=== PATIENT | female | born 2000 | race Caucasian/White ===

== ENCOUNTER → 2021-10-02 | Outpatient (REF) ==
[2021-10-02 12:27] LABS: RSV AMPLIFICATION NEGATIVE (NEGATIVE)
== END ==
LOC: M LABSMTC 10:35
PROVIDERS: ATTEND Family Medicine
DX: Z11.52 Encounter for screening for COVID-19 (principal); Z20.822 Contact with and (suspected) exposure to COVID-19

== ENCOUNTER → 2023-02-07 | Outpatient (CLI) | payer BC, OTHER ==
[2023-02-07 14:47] LABS: BASO % 0.4 % (0.0-1.0); EOS # 0.2 10^3/uL (0.0-0.5); EOS % 2.2 % (0.0-3.0); HEMATOCRIT 46.7 % (36.0-47.0); HEMOGLOBIN 15.3 g/dl (12.0-15.5); LYMPH # 2.8 10^3/uL (1.5-5.0); LYMPH % 33.1 % (24.0-44.0); MEAN CORPUSCULAR HEMOGLOBIN 28.2 pg (27.0-33.0); MEAN CORPUSCULAR HGB CONC 32.8 g/dl (32.0-36.5); MONO # 0.7 10^3/uL (0.0-0.8); MONO % 8.5 % (2.0-8.0); NEUTROPHILS # 4.6 10^3/uL (1.5-8.5); NEUTROPHILS % 55.6 % (36.0-66.0); PLATELET COUNT, AUTOMATED 365 10^3/uL (150-450); RED BLOOD COUNT 5.43 10^6/uL (4.00-5.40); WHITE BLOOD COUNT 8.3 10^3/uL (4.0-10.0)
[2023-02-07 14:57] LABS: HEMOGLOBIN A1c 5.1 % (4.0-6.0)
[2023-02-07 15:18] LABS: ALBUMIN 3.9 G/DL (3.2-5.2); ALKALINE PHOSPHATASE 75 U/L (46-116); ALT/SGPT 20 U/L (7.0-40); AST/SGOT 17 U/L (<34); BILIRUBIN,TOTAL 0.4 MG/DL (0.3-1.2); BLOOD UREA NITROGEN 10 MG/DL (9-23); CALCIUM LEVEL 9.7 MG/DL (8.5-10.1); CARBON DIOXIDE LEVEL 30 MMOL/L (20-31); CHLORIDE LEVEL 100 MMOL/L (98-107); CREATININE FOR GFR 0.73 MG/DL (0.55-1.30); FREE T4 0.97 NG/DL (0.89-1.76); GLOMERULAR FILTRATION RATE > 60.0 (>60); GLUCOSE, FASTING 84 MG/DL (60-100); POTASSIUM SERUM 4.1 MMOL/L (3.5-5.1); SODIUM LEVEL 137 MMOL/L (136-145); THYROID PEROXIDASE ANTIBODY 92 U/ML (<60.0); THYROID STIMULATING HORMONE 1.325 uIU/ML (0.55-4.78); TOTAL PROTEIN 7.9 G/DL (5.7-8.2)
== END ==
LOC: M LAB 13:56
PROVIDERS: ATTEND Nurse Practitioner Adult Health
DX: R53.83 Other fatigue (principal); E66.01 Morbid (severe) obesity due to excess calories

== ENCOUNTER → 2023-11-01 | Outpatient (CLI) | payer BC, OTHER | LOC: M LAB 15:46 | PROVIDERS: ATTEND Nurse Practitioner Adult Health | DX: N91.2 Amenorrhea, unspecified (principal) ==

== ENCOUNTER → 2023-11-07 | Outpatient (CLI) | payer BC, OTHER | LOC: M LAB 16:31 | PROVIDERS: ATTEND Nurse Practitioner Adult Health | DX: N91.2 Amenorrhea, unspecified (principal) ==

== ENCOUNTER → 2023-11-14 | Outpatient (CLI) | payer BC, OTHER | LOC: M LAB 16:34 | PROVIDERS: ATTEND Nurse Practitioner Adult Health | DX: Z33.1 Pregnant state, incidental (principal) ==

== ENCOUNTER 2023-11-16 20:05 | Emergency (ER) | payer BC, OTHER ==
[~2023-11-16] VITALS: Ht 167.6 cm; Wt 149.3 kg
[2023-11-16 22:51] LABS: BASO % 0.4 % (0.0-1.0); EOS # 0.2 10^3/uL (0.0-0.5); EOS % 1.5 % (0.0-3.0); HEMATOCRIT 40.8 % (36.0-47.0); HEMOGLOBIN 13.4 g/dl (12.0-15.5); LYMPH # 2.8 10^3/uL (1.5-5.0); LYMPH % 24.5 % (24.0-44.0); MEAN CORPUSCULAR HEMOGLOBIN 28.3 pg (27.0-33.0); MEAN CORPUSCULAR HGB CONC 32.8 g/dl (32.0-36.5); MEAN CORPUSCULAR VOLUME 86.1 fl (80.0-96.0); MONO # 0.9 10^3/uL (0.0-0.8); MONO % 8.2 % (2.0-8.0); NEUTROPHILS # 7.4 10^3/uL (1.5-8.5); NEUTROPHILS % 65.2 % (36.0-66.0); PLATELET COUNT, AUTOMATED 323 10^3/uL (150-450); RED BLOOD COUNT 4.74 10^6/uL (4.00-5.40); WHITE BLOOD COUNT 11.3 10^3/uL (4.0-10.0)
[2023-11-16 23:07] LABS: BLOOD UREA NITROGEN 12 MG/DL (9-23); CALCIUM LEVEL 8.8 MG/DL (8.5-10.1); CARBON DIOXIDE LEVEL 26 MMOL/L (20-31); CHLORIDE LEVEL 103 MMOL/L (98-107); CREATININE FOR GFR 0.53 MG/DL (0.55-1.30); GLOMERULAR FILTRATION RATE > 60.0 (>60); GLUCOSE, FASTING 83 MG/DL (60-100); POTASSIUM SERUM 3.4 MMOL/L (3.5-5.1); SODIUM LEVEL 137 MMOL/L (136-145)
[2023-11-16 23:21] LABS: HCG, SERUM QUANTITATIVE 6523.1 MIU/ML (<4.2)
[2023-11-17 00:12] VITALS: BP 140/86; TEMP 98; O2SAT 100
== END 2023-11-17 04:22 | disposition home or self-care (01) ==
LOC: M ED 20:05
DX: O20.0 Threatened abortion (principal); Z3A.01 Less than 8 weeks gestation of pregnancy; Z88.1 Allergy status to other antibiotic agents

== ENCOUNTER → 2023-11-18 | Outpatient (CLI) | payer BC, OTHER | LOC: M LAB 10:37 | PROVIDERS: ATTEND Emergency Medicine | DX: O20.0 Threatened abortion (principal) ==

== ENCOUNTER → 2023-11-21 | Outpatient (CLI) | payer BC, OTHER | LOC: M LAB 16:36 | PROVIDERS: ATTEND Nurse Practitioner Adult Health | DX: Z33.1 Pregnant state, incidental (principal) ==

== ENCOUNTER → 2023-12-04 | Outpatient (CLI) | payer BC, OTHER | LOC: M LAB 17:04 | PROVIDERS: ATTEND Nurse Practitioner Adult Health | DX: Z33.1 Pregnant state, incidental (principal) ==

== ENCOUNTER 2023-12-08 20:40 | Emergency (ER) | payer BC, OTHER ==
[~2023-12-08] VITALS: Ht 170.2 cm; Wt 149.7 kg
[2023-12-08 22:40] LABS: BLOOD UREA NITROGEN 9 MG/DL (9-23); CALCIUM LEVEL 8.8 MG/DL (8.5-10.1); CARBON DIOXIDE LEVEL 25 MMOL/L (20-31); CHLORIDE LEVEL 104 MMOL/L (98-107); CREATININE FOR GFR 0.55 MG/DL (0.55-1.30); GLOMERULAR FILTRATION RATE > 60.0 (>60); GLUCOSE, FASTING 111 MG/DL (60-100); POTASSIUM SERUM 3.8 MMOL/L (3.5-5.1); SODIUM LEVEL 138 MMOL/L (136-145)
[2023-12-08 22:42] LABS: BASO % 0.4 % (0.0-1.0); EOS % 0.1 % (0.0-3.0); LYMPH # 1.9 10^3/uL (1.5-5.0); MEAN CORPUSCULAR HEMOGLOBIN 28.1 pg (27.0-33.0); MEAN CORPUSCULAR HGB CONC 32.5 g/dl (32.0-36.5); MEAN CORPUSCULAR VOLUME 86.4 fl (80.0-96.0); MONO # 0.7 10^3/uL (0.0-0.8); MONO % 5.7 % (2.0-8.0); NEUTROPHILS # 8.7 10^3/uL (1.5-8.5); NEUTROPHILS % 76.6 % (36.0-66.0); PLATELET COUNT, AUTOMATED 341 10^3/uL (150-450); RED BLOOD COUNT 4.63 10^6/uL (4.00-5.40); WHITE BLOOD COUNT 11.4 10^3/uL (4.0-10.0)
[2023-12-08 22:52] LABS: HCG, SERUM QUANTITATIVE 2238.5 MIU/ML (<4.2)
[2023-12-09 01:50] VITALS: BP 146/80; TEMP 98.3; O2SAT 98
== END 2023-12-09 01:51 | disposition home or self-care (01) ==
LOC: M ED 20:40
DX: O02.1 Missed abortion (principal); Z88.8 Allergy status to other drugs, medicaments and biological substances
CPT/HCPCS: 76801; 80048; 84702; 85025; 86850; 86900; 86901; 93976; 99284; S0191

== ENCOUNTER → 2023-12-18 | Outpatient (CLI) | payer BC, OTHER | LOC: M LAB 16:41 | PROVIDERS: ATTEND Advanced Practice Midwife | DX: O02.1 Missed abortion (principal) ==

== ENCOUNTER → 2024-04-30 | Outpatient (CLI) | payer BC | LOC: M LAB 12:18 | PROVIDERS: ATTEND Nurse Practitioner Adult Health | DX: N91.2 Amenorrhea, unspecified (principal) ==

== ENCOUNTER → 2024-06-15 | Outpatient (REF) | LOC: M EMP 08:47 | PROVIDERS: ATTEND Family Medicine | DX: Z20.828 Contact with and (suspected) exposure to other viral communicable diseases (principal) ==

== ENCOUNTER 2024-08-11 08:06 | Emergency (ER) | payer BC ==
[~2024-08-11] VITALS: Ht 170.2 cm; Wt 138.9 kg
[2024-08-11 08:15] VITALS: TEMP 97.4
[2024-08-11] MEDS ORDERED: MULTTAB20 PO (08:24)
[2024-08-11 08:52] LABS: BASO % 0.5 % (0.0-1.0); EOS # 0.1 10^3/uL (0.0-0.5); EOS % 0.7 % (0.0-3.0); HEMATOCRIT 39.6 % (36.0-47.0); HEMOGLOBIN 13.3 g/dl (12.0-15.5); LYMPH # 1.9 10^3/uL (1.5-5.0); LYMPH % 22.9 % (24.0-44.0); MEAN CORPUSCULAR HEMOGLOBIN 28.4 pg (27.0-33.0); MEAN CORPUSCULAR HGB CONC 33.6 g/dl (32.0-36.5); MEAN CORPUSCULAR VOLUME 84.4 fl (80.0-96.0); MONO # 0.7 10^3/uL (0.0-0.8); NEUTROPHILS # 5.7 10^3/uL (1.5-8.5); NEUTROPHILS % 67.4 % (36.0-66.0); PLATELET COUNT, AUTOMATED 322 10^3/uL (150-450); RED BLOOD COUNT 4.69 10^6/uL (4.00-5.40); WHITE BLOOD COUNT 8.4 10^3/uL (4.0-10.0)
[2024-08-11 09:14] LABS: BLOOD UREA NITROGEN 6 MG/DL (9-23); CALCIUM LEVEL 9.2 MG/DL (8.5-10.1); CARBON DIOXIDE LEVEL 24 MMOL/L (20-31); CHLORIDE LEVEL 106 MMOL/L (98-107); CREATININE FOR GFR 0.52 MG/DL (0.55-1.30); GLOMERULAR FILTRATION RATE > 60.0 (>60); GLUCOSE, FASTING 105 MG/DL (60-100); POTASSIUM SERUM 3.6 MMOL/L (3.5-5.1); SODIUM LEVEL 138 MMOL/L (136-145)
[2024-08-11 09:32] LABS: HCG, SERUM QUANTITATIVE 68480.8 MIU/ML (<4.2)
[2024-08-11 12:10] VITALS: BP 131/77; O2SAT 98
== END 2024-08-11 12:11 | disposition home or self-care (01) ==
LOC: M ED 08:06
DX: O46.91 Antepartum hemorrhage, unspecified, first trimester (principal); Z88.8 Allergy status to other drugs, medicaments and biological substances; Z79.810 Long term (current) use of selective estrogen receptor modulators (SERMs)

== ENCOUNTER → 2024-08-29 | Outpatient (CLI) | payer BC ==
[~2024-08-29] MED LIST: CEPH500C PO; MULTTAB20 PO
== END ==
LOC: M LAB 11:55
PROVIDERS: ATTEND Nurse Practitioner Family
DX: Z34.80 Encounter for supervision of other normal pregnancy, unspecified trimester (principal)

== ENCOUNTER 2024-09-02 13:36 | Emergency (ER) | payer BC ==
[~2024-09-02] VITALS: Ht 170.2 cm; Wt 138.5 kg
[~2024-09-02 13:36] MED LIST changes: -CEPH500C PO
[2024-09-02 15:00] LABS: BASO % 0.3 % (0.0-1.0); EOS # 0.1 10^3/uL (0.0-0.5); EOS % 0.7 % (0.0-3.0); HEMATOCRIT 40.2 % (36.0-47.0); HEMOGLOBIN 13.3 g/dl (12.0-15.5); LYMPH % 20.3 % (24.0-44.0); MEAN CORPUSCULAR HEMOGLOBIN 27.9 pg (27.0-33.0); MEAN CORPUSCULAR HGB CONC 33.1 g/dl (32.0-36.5); MEAN CORPUSCULAR VOLUME 84.5 fl (80.0-96.0); MONO # 0.8 10^3/uL (0.0-0.8); MONO % 7.9 % (2.0-8.0); NEUTROPHILS # 7.1 10^3/uL (1.5-8.5); NEUTROPHILS % 70.6 % (36.0-66.0); PLATELET COUNT, AUTOMATED 275 10^3/uL (150-450); RED BLOOD COUNT 4.76 10^6/uL (4.00-5.40)
[2024-09-02 15:20] LABS: APPEARANCE, URINE CLEAR (CLEAR); BACTERIA, URINE AUTO 1+ (NEGATIVE); BILIRUBIN, URINE AUTO NEGATIVE (NEGATIVE); BLOOD, URINE BLOOD 3+ (NEGATIVE); COLOR, URINE YELLOW (YELLOW); GLUCOSE, URINE (UA) AUTO NEGATIVE (NEGATIVE); KETONE, URINE AUTO NEGATIVE (NEGATIVE); LEUKOCYTE ESTERASE, URINE AUTO 2+ (NEGATIVE); MUCUS, URINE SMALL (NEGATIVE); NITRITE, URINE AUTO NEGATIVE (NEGATIVE); PROTEIN, URINE AUTO NEGATIVE (NEGATIVE); RBC, URINE AUTO 4 /HPF (0-3); SQUAMOUS EPITHELIAL CELL UR AU 5 /HPF (0-6); UROBILINOGEN, URINE AUTO 0.2 mg/dL (0.0-2.0); WBC, URINE AUTO 4 /HPF (0-3)
[2024-09-02 15:22] LABS: BLOOD UREA NITROGEN 7 MG/DL (9-23); CALCIUM LEVEL 9.4 MG/DL (8.5-10.1); CARBON DIOXIDE LEVEL 24 MMOL/L (20-31); CHLORIDE LEVEL 104 MMOL/L (98-107); CREATININE FOR GFR 0.52 MG/DL (0.55-1.30); GLOMERULAR FILTRATION RATE > 60.0 (>60); GLUCOSE, FASTING 99 MG/DL (60-100); POTASSIUM SERUM 3.6 MMOL/L (3.5-5.1); SODIUM LEVEL 137 MMOL/L (136-145)
[2024-09-02] MEDS: CEPHALEXIN 500 MG CAP PO ONE (15:35)
[2024-09-02 15:36] LABS: HCG, SERUM QUANTITATIVE 39119.6 MIU/ML (<4.2)
[2024-09-02] MEDS ORDERED: CEPH500C PO (16:57)
[2024-09-02 17:08] VITALS: BP 130/83; TEMP 97.4; O2SAT 97
== END 2024-09-02 17:20 | disposition home or self-care (01) ==
LOC: M ED 13:36
DX: O26.851 Spotting complicating pregnancy, first trimester (principal); Z3A.12 12 weeks gestation of pregnancy; O23.41 Unspecified infection of urinary tract in pregnancy, first trimester; Z88.8 Allergy status to other drugs, medicaments and biological substances; Z79.2 Long term (current) use of antibiotics; Z79.810 Long term (current) use of selective estrogen receptor modulators (SERMs)

== ENCOUNTER → 2024-09-04 | Outpatient (CLI) | payer BC ==
[~2024-09-04] MED LIST changes: +CEPH500C PO
[2024-09-04 17:12] LABS: HEMATOCRIT 39.2 % (36.0-47.0); HEMOGLOBIN 12.6 g/dl (12.0-15.5); MEAN CORPUSCULAR HEMOGLOBIN 27.9 pg (27.0-33.0); MEAN CORPUSCULAR HGB CONC 32.1 g/dl (32.0-36.5); MEAN CORPUSCULAR VOLUME 86.9 fl (80.0-96.0); PLATELET COUNT, AUTOMATED 282 10^3/uL (150-450); RED BLOOD COUNT 4.51 10^6/uL (4.00-5.40); WHITE BLOOD COUNT 10.6 10^3/uL (4.0-10.0)
[2024-09-04 17:18] LABS: HEMOGLOBIN A1c 4.8 % (4.0-6.0)
[2024-09-04 17:19] LABS: URIC ACID 5.3 MG/DL (3.1-7.8)
[2024-09-04 17:20] LABS: CREATININE,RANDOM URINE 225.1 MG/DL
[2024-09-04 17:21] LABS: LDH LACTATE DEHYDROGENASE 161 U/L (120-246)
[2024-09-04 17:22] LABS: ALT/SGPT 36 U/L (7.0-40); AST/SGOT 20 U/L (<34); BILIRUBIN,TOTAL 0.3 MG/DL (0.3-1.2); GLOMERULAR FILTRATION RATE > 60.0 (>60)
[2024-09-04 17:54] LABS: HIV 1&2 SCREEN NEGATIVE (NEGATIVE)
[2024-09-04 18:02] LABS: HEPATITIS C VIRUS ABY INDEX < 0.02 INDEX (<0.8)
[2024-09-04 19:03] LABS: GC DNA AMPLIFICATION NEGATIVE (NEGATIVE)
== END ==
LOC: M LAB 16:06
PROVIDERS: ATTEND Nurse Practitioner Family
DX: Z34.81 Encounter for supervision of other normal pregnancy, first trimester (principal)

== ENCOUNTER → 2024-10-08 | Outpatient (CLI) | payer BC | LOC: M LAB 16:39 | PROVIDERS: ATTEND Nurse Practitioner Family | DX: Z31.430 Encounter of female for testing for genetic disease carrier status for procreative management (principal) ==

== ENCOUNTER → 2024-10-23 | Outpatient (CLI) | payer OTHER, BC | LOC: M WHC 14:37 | PROVIDERS: ATTEND Nurse Practitioner Family | DX: Z34.82 Encounter for supervision of other normal pregnancy, second trimester (principal) ==

== ENCOUNTER → 2024-11-06 | Outpatient (CLI) | payer OTHER, BC | LOC: M RAD 15:03 | PROVIDERS: ATTEND Nurse Practitioner Family | DX: Z34.82 Encounter for supervision of other normal pregnancy, second trimester (principal); Z3A.21 21 weeks gestation of pregnancy ==

== ENCOUNTER → 2024-12-10 | Outpatient (REF) | payer OTHER, BC ==
[2024-12-10 21:13] LABS: GC DNA AMPLIFICATION NEGATIVE (NEGATIVE)
[2024-12-11 12:19] LABS: Trichomonas vaginalis (AMP) NOT DETECTED (NEGATIVE)
== END ==
LOC: M PLALAB 15:35
PROVIDERS: ATTEND Nurse Practitioner Family
DX: Z34.80 Encounter for supervision of other normal pregnancy, unspecified trimester (principal); Z3A.00 Weeks of gestation of pregnancy not specified

== ENCOUNTER → 2024-12-18 | Outpatient (CLI) | payer BC, OTHER ==
[2024-12-18 17:39] LABS: HEMOGLOBIN 13.3 g/dl (12.0-15.5); MEAN CORPUSCULAR HEMOGLOBIN 28.7 pg (27.0-33.0); MEAN CORPUSCULAR HGB CONC 32.4 g/dl (32.0-36.5); MEAN CORPUSCULAR VOLUME 88.6 fl (80.0-96.0); PLATELET COUNT, AUTOMATED 291 10^3/uL (150-450); RED BLOOD COUNT 4.63 10^6/uL (4.00-5.40); WHITE BLOOD COUNT 13.5 10^3/uL (4.0-10.0)
[2024-12-18 18:02] LABS: GLUCOSE CHALLENGE TEST 1 HOUR 115 MG/DL (LESS THAN 140)
[2024-12-18 18:38] LABS: HIV 1&2 SCREEN NEGATIVE (NEGATIVE)
[2024-12-18 18:45] LABS: HEPATITIS C VIRUS ABY INDEX 0.03 INDEX (<0.8)
== END ==
LOC: M LAB 15:49
PROVIDERS: ATTEND Nurse Practitioner Family
DX: Z34.80 Encounter for supervision of other normal pregnancy, unspecified trimester (principal)

== ENCOUNTER → 2024-12-24 | Outpatient (REF) | LOC: M EMP 09:11 | PROVIDERS: ATTEND Family Medicine | DX: Z11.52 Encounter for screening for COVID-19 (principal) ==

== ENCOUNTER → 2024-12-27 | Outpatient (REF) | payer OTHER | LOC: M LAB REF 11:45 | PROVIDERS: ATTEND Physician Assistant Medical | DX: B34.9 Viral infection, unspecified (principal); J02.9 Acute pharyngitis, unspecified ==

== ENCOUNTER 2025-02-01 06:56 | Emergency (ER) | payer OTHER, BC ==
[2025-02-01] MEDS ORDERED: ASPI81CH33 PO (07:19)
== END 2025-02-01 07:00 | disposition admitted as inpatient to this hospital (09) ==
LOC: M ED 06:56
DX: Z53.21 Procedure and treatment not carried out due to patient leaving prior to being seen by health care provider (principal)

== ENCOUNTER 2025-02-01 07:03 | Outpatient (CLI) | payer OTHER, BC ==
[~2025-02-01] VITALS: Ht 167.6 cm; Wt 147.0 kg
[2025-02-01] MEDS ORDERED: ASPI81CH33 PO (07:19)
[2025-02-01 07:21] VITALS: BP 132/82
== END 2025-02-01 08:35 | disposition home or self-care (01) ==
LOC: M LDO 07:03
PROVIDERS: ATTEND Advanced Practice Midwife
DX: O36.8130 Decreased fetal movements, third trimester, not applicable or unspecified (principal); O99.213 Obesity complicating pregnancy, third trimester; E66.9 Obesity, unspecified; Z3A.33 33 weeks gestation of pregnancy
CPT/HCPCS: 59025; 76815; G0463

== ENCOUNTER → 2025-02-18 | Outpatient (REF) | payer OTHER ==
[~2025-02-18] MED LIST changes: +ASPI81CH33 PO
== END ==
LOC: M PLALAB 15:02
PROVIDERS: ATTEND Nurse Practitioner Family
DX: Z34.93 Encounter for supervision of normal pregnancy, unspecified, third trimester (principal); Z3A.36 36 weeks gestation of pregnancy

== ENCOUNTER → 2025-06-11 | Outpatient (CLI) | payer OTHER ==
[~2025-06-11] MED LIST changes: +ACET-683 PO; +IBUP80TA PO
== END ==
LOC: M WHC 12:49
PROVIDERS: ATTEND Nurse Practitioner Adult Health
DX: Z12.31 Encounter for screening mammogram for malignant neoplasm of breast (principal); R92.313 Mammographic fatty tissue density, bilateral breasts

== ENCOUNTER → 2025-06-30 | Outpatient (CLI) | payer OTHER | LOC: M WHC 14:31 | PROVIDERS: ATTEND Nurse Practitioner Adult Health | DX: R92.8 Other abnormal and inconclusive findings on diagnostic imaging of breast (principal) ==

== ENCOUNTER → 2025-07-16 | Outpatient (REF) | payer OTHER ==
[2025-07-20 13:02] LABS: HPV APTIMA Not Detected (Not Detected)
== END ==
LOC: M PLALAB 16:12
PROVIDERS: ATTEND Physician Assistant
DX: Z12.4 Encounter for screening for malignant neoplasm of cervix (principal)

== ENCOUNTER → 2025-07-16 | Outpatient (CLI) | payer OTHER | LOC: M PLALAB 16:25 | PROVIDERS: ATTEND Physician Assistant | DX: Z13.79 Encounter for other screening for genetic and chromosomal anomalies (principal); Z80.3 Family history of malignant neoplasm of breast ==

== ENCOUNTER → 2025-09-10 | Outpatient (CLI) | payer OTHER | LOC: M CARPUL 13:05 | PROVIDERS: ATTEND Nurse Practitioner Adult Health | DX: R01.1 Cardiac murmur, unspecified (principal) ==